=== PATIENT | male | born 1970 | race Caucasian/White ===

== ENCOUNTER 2018-02-19 15:51 | Emergency (ER) | payer OTHER ==
--- NOTE | 2018-02-19 16:15 | EDPHY ---
H & P Stated Complaint: R arm redness Time Seen by Provider: 02/19/18 16:07 HPI/ROS: CHIEF COMPLAINT: Right bicep erythema with lymphangitic streaking HISTORY OF PRESENT ILLNESS: 47-year-old healthy male with no immunocompromised or suppressed condition, up-to-date tetanus, awoke with an erythematous tender nonpruritic right bicep lesion with lymphangitic streaking proximally. No known history of injury or bite. No history of tick removal. Does note that he [place] [facility] on a regular basis and within the past 2 weeks has been in [place], [place]. No fever no chills. No history of chronic skin infection or recurrent skin infection. No history of cutaneous MRSA. No malaise. No flu-like symptoms. PRIMARY CARE PROVIDER: Dr. Gunjan Griffiths REVIEW OF SYSTEMS: A ten point review of systems was performed and is negative with the exception of the items mentioned in the HPI PAST MEDICAL & SURGICAL HISTORY: Up-to-date tetanus. No pertinent medical or surgical history SOCIAL HISTORY: Nonsmoker PHYSICAL EXAM (Prior to examination, patient consented to physical exam, hands were washed and my usual and customary physical exam procedures followed) 1) GENERAL: Well-developed, well-nourished, alert and oriented. Appears to be in no acute distress. 2) HEAD: Normocephalic, atraumatic 3) HEENT: Pupils equal, round, reactive to light bilaterally. Sclera anicteric. 4) NECK: Full range of motion, no meningeal signs. 5) LUNGS: Clear auscultation bilaterally, no wheezes, no rhonchi, no retractions. 6) HEART: Regular rate and rhythm, no murmur, no heave, no gallop. 7) ABDOMEN: No guarding, no rebound, no focal tenderness, negative McBurney's, negative Thomas's, negative Rovsing's, negative peritoneal sign, 8) MUSCULOSKELETAL: Right upper extremity: The patient's right anteromedial bicep he has a 4 cm x 4 cm erythematous tender indurated area which is nonfluctuant with mild lymphangitic streaking. No crepitus. No axillary adenopathy proximally. Distal neurovascular status intact and normal. 9) BACK: No visual or palpable abnormality. 10) SKIN: No rash, no petechiae. 11) Psychiatric: Patient is oriented X 3, there is no agitation. DIFFERENTIAL DIAGNOSIS: In no particular include but limited to contact dermatitis, abscess, cellulitis, necrotizing fasciitis - Personal History Current Tetanus/Diphtheria Vaccine: Yes Current Tetanus Diphtheria and Acellular Pertussis (TDAP): Yes - Medical/Surgical History Hx Asthma: No Hx Chronic Respiratory Disease: No Hx Diabetes: No Hx Cardiac Disease: No Hx Renal Disease: No Hx Cirrhosis: No Hx Alcoholism: No Hx HIV/AIDS: No Hx Splenectomy or Spleen Trauma: No Other PMH: HTN, IGA nephropathy - Social History Smoking Status: Never smoked Constitutional: Initial Vital Signs Temperature (C) 36.7 C 02/19/18 15:56 Heart Rate 55 L 02/19/18 15:56 Respiratory Rate 16 02/19/18 15:56 Blood Pressure 117/71 02/19/18 15:56 O2 Sat (%) 95 02/19/18 15:56 O2 Delivery Mode Room Air Allergies/Adverse Reactions: No Known Allergies Allergy (Unverified 02/19/18 15:55) Home Medications: Medication Instructions Recorded Cephalexin [Keflex] 500 mg PO TID 10 Days cap 02/19/18 Losartan Potassium 02/19/18 amLODIPine BESYLATE 02/19/18 Medical Decision Making ED Course/Re-evaluation: 4:14 p.m.: Will plan on IV Ancef and more than likely discharge from the emergency department. At this time given his lack of comorbidities, afebrile, I do not think that hospitalization is indicated. I think a trial of outpatient therapy is indicated with the caveat of close follow-up. He is agreeable with this plan. Care of patient under supervision of secondary supervising physician Dr Santacruz. Departure - Departure Disposition: Home, Routine, Self-Care Clinical Impression: Cellulitis of right upper extremity Condition: Good Instructions: Cellulitis (ED) Additional Instructions: Return to the ER if you develop redness, swelling, discharge, warmth to the wound, or any other symptoms that concern you. Referrals: Gunjan Good MD [Primary Care Provider] - 1-2 days without fail Prescriptions: Cephalexin [Keflex] 500 mg PO TID 10 Days cap
[2018-02-19 16:42] LABS: PLATELET COUNT 172 10^3/uL (150-400)
[2018-02-19 17:26] VITALS: BP 115/65
== END 2018-02-19 17:23 | disposition home or self-care (01) ==
DX: L03.113 Cellulitis of right upper limb (principal); I10 Essential (primary) hypertension
CPT/HCPCS: 96374; J0690

== ENCOUNTER 2018-02-20 20:21 | Emergency (ER) | payer OTHER ==
[2018-02-20 20:25] VITALS: BP 123/88
--- NOTE | 2018-02-20 20:27 | EDPHY ---
H & P Time Seen by Provider: 02/20/18 20:27 HPI/ROS: CHIEF COMPLAINT: Cellulitis recheck HISTORY OF PRESENT ILLNESS: 47-year-old immunocompetent male seen the ER yesterday by myself for right bicep erythema, started on Ancef and Keflex at that time. The extent of erythema was outlined by myself at that time. He comes to the ER for recheck, unsure whether the erythema has improved or not. He denies secondary complaints such as fever, chills, nausea, vomiting, malaise , flu-like symptoms, headache. PHYSICAL EXAM (Prior to examination, patient consented to physical exam, hands were washed and my usual and customary physical exam procedures followed) 1) GENERAL: Well-developed, well-nourished, alert and oriented. Appears to be in no acute distress. Smiling, shakes my hand appears well 2) HEAD: Normocephalic, atraumatic 3) HEENT: Pupils equal, round, reactive to light bilaterally. Sclera anicteric. 4) NECK: Full range of motion, no meningeal signs. 5)MUSCULOSKELETAL: Right upper extremity: The area of erythema consistent with cellulitis has regressed compared to the outlined area. There is no lymphangitic streaking. There is no axillary adenopathy. No crepitus. No fluctuance. No drainage. Soft compartments. He is neurovascular intact distally. Smoking Status: Never smoked Constitutional: Initial Vital Signs Temperature (C) 36.4 C 02/20/18 20:23 Heart Rate 56 L 02/20/18 20:23 Respiratory Rate 20 02/20/18 20:23 Blood Pressure 123/88 H 02/20/18 20:23 O2 Sat (%) 93 02/20/18 20:23 O2 Delivery Mode Room Air Allergies/Adverse Reactions: No Known Allergies Allergy (Unverified 02/20/18 20:23) Home Medications: Medication Instructions Recorded Cephalexin [Keflex] 500 mg PO TID 10 Days cap 02/19/18 Losartan Potassium 02/19/18 amLODIPine BESYLATE 02/19/18 MDM/Departure - [facility] ED Course/Re-evaluation: 8:30 p.m.: I am familiar with this patient as he was seen the ER yesterday by myself. Yesterday the extent of erythema was outlined by myself. He has had regression of erythema. I think he is responding well to antibiotic therapy. Do not think that IV antibiotics or addition of further antibiotics indicated at this time. Recommend continue antibiotics until finished, continue warm compresses. He feels comfortable being discharged. I saw this patient independently based on established practice protocols. Care of patient under supervision of secondary supervising physician Dr Santacruz with whom I discussed case. - Depart Disposition: Home, Routine, Self-Care Clinical Impression: Cellulitis of right upper extremity Condition: Good Instructions: Cellulitis (ED) Additional Instructions: Continue taking antibiotic until finished. Return to the ER if you develop red streaks up your arm , fevers or any other symptoms that concern you Referrals: Gunjan Good MD [Primary Care Provider] - 1-2 days without fail
== END 2018-02-20 20:43 | disposition home or self-care (01) ==
DX: Z48.00 Encounter for change or removal of nonsurgical wound dressing (principal)
CPT/HCPCS: G0463

== ENCOUNTER 2019-03-08 05:30 | Observation (INO) | payer OTHER | END 2019-03-08 18:38 | disposition home or self-care (01) | LOC: F2W 07:58 ==